=== PATIENT | male | born 1995 | race Caucasian/White ===

== ENCOUNTER 2024-09-13 15:21 | Inpatient (IN) | payer OTHER ==
[2024-09-13] MEDS ORDERED: LORazepam 1 MG TAB PO PRN ×4 (15:24)
[2024-09-13] MEDS ORDERED: LORazepam 2 MG/ML INJ IV PRN (15:24)
[2024-09-13] MEDS ORDERED: LORazepam 0.5 MG TAB PO PRN (15:24)
--- NOTE | 2024-09-13 15:26 | ED ---
Seizure HPI - General Stated Complaint: seizure Time Seen by Provider: 09/13/24 15:24 Source: RN notes reviewed, old records reviewed Mode of arrival: EMS Limitations: altered mental status, physical limitation - History of Present Illness Initial Comments: This is a 28-year-old male to the ER for evaluation presenting mildly postictal although immediately responsive, patient states he does not want to be here in the hospital patient had likely 2 seizures prior to arrival and was given medication by EMS. Patient is going through alcohol withdrawal with history of polysubstance abuse MD Complaint: seizure -: minutes(s) Description of Episode: loss of consciousness, tonic-clonic movement -: second(s) Witnessed: yes - by bystander Trauma: Yes Seizure History: history of withdrawal seizures Place: other (Coming from [place]) Possible Precipitating Event: none Associated Symptoms: denies other symptoms Treatments Prior to Arrival: none - Related Data Allergies Allergy/AdvReac Type Severity Reaction Status Date / Time Penicillins Allergy Rash/Hives Verified 09/13/24 17:32 Review of Systems ROS Statement: Those systems with pertinent positive or pertinent negative responses have been documented in the HPI. ROS Other: All systems not noted in ROS Statement are negative. General Exam General appearance: alert, in no apparent distress Head exam: Present: atraumatic, normocephalic, normal inspection Eye exam: Present: normal appearance, PERRL, EOMI. Absent: scleral icterus, conjunctival injection, periorbital swelling ENT exam: Present: normal exam, mucous membranes moist Neck exam: Present: normal inspection. Absent: tenderness, meningismus, lymphadenopathy Respiratory exam: Present: normal lung sounds bilaterally. Absent: respiratory distress, wheezes, rales, rhonchi, stridor Cardiovascular Exam: Present: regular rate, normal rhythm, normal heart sounds. Absent: systolic murmur, diastolic murmur, rubs, gallop, clicks GI/Abdominal exam: Present: soft, normal bowel sounds. Absent: distended, tenderness, guarding, rebound, rigid Extremities exam: Present: normal inspection, full ROM, normal capillary refill. Absent: tenderness, pedal edema, joint swelling, calf tenderness Back exam: Present: normal inspection Neurological exam: Present: alert, oriented X3, CN II-XII intact Psychiatric exam: Present: normal affect, normal mood Skin exam: Present: warm, dry, intact, normal color. Absent: rash Course Vital Signs 09/13/24 09/13/24 09/13/24 15:25 15:31 16:31 Temperature 98 F Pulse Rate 94 92 90 Respiratory 20 23 20 Rate Blood Pressure 129/68 127/73 120/68 O2 Sat by Pulse 98 98 98 Oximetry - Reevaluation(s) Reevaluation #1: 09/13/24 15:26 Medical records reviewed Reevaluation #2: 09/13/24 17:33 Patient withdrawal symptoms beginning to be controlled with benzodiazepines here in the ER Reevaluation #3: 09/13/24 17:33 Patient informed of results questions answered patient spoken with at length regarding need to stay in the hospital and he is amenable Reevaluation #4: Was pt. sent in by a medical professional or institution (KANDIS Jones, EXPERIENCE DESIGNER, urgent care, hospital, or fci...) When possible be specific @ -no Did you speak to anyone other than the patient for history (EMS, parent, family, police, friend...)? What history was obtained from this source @ -no Did you review nursing and triage notes (agree or disagree)? Why? @ -agree Are old charts reviewed (outside hosp., previous admission, EMS record, old EKG, old radiological studies, urgent care reports/EKG's, fci records)? Report findings @ -yes Differential Diagnosis (chest pain, altered mental status, abdominal pain women, abdominal pain men, vaginal bleeding, weakness, fever, dyspnea, syncope, headache, dizziness, GI bleed, back pain, seizure, CVA, palpatations, mental health, musculoskeletal)? @ -prior EKG interpreted by me (3pts min.). @ -yes X-rays interpreted by me (1pt min.). @ -yes negative for acute disease CT interpreted by me (1pt min.). @ -no U/S interpreted by me (1pt. min.). @ -no What testing was considered but not performed or refused? (CT, X-rays, U/S, labs)? Why? @ -none What meds were considered but not given or refused? Why? @ -none Did you discuss the management of the patient with other professionals (professionals i.e. KANDIS Jones, EXPERIENCE DESIGNER, lab, RT, psych nurse, social human services assistants, getter operator, teacher, professional security officer, heel caser)? Give summary @ -no Was smoking cessation discussed for >3mins.? @ -no Was critical care preformed (if so, how long)? @ -no Were there social determinants of health that impacted care today? How? (Homelessness, low income, unemployed, alcoholism, drug addiction, transportation, low edu. Level, literacy, decrease access to med. care, prison, rehab)? @ -none Was there de-escalation of care discussed even if they declined (Discuss DNR or withdrawal of care, Hospice)? DNR status @ -no What co-morbidities impacted this encounter? (DM, HTN, Smoking, COPD, CAD, Ca ncer, CVA, ARF, Chemo, Hep., AIDS, mental health diagnosis, sleep apnea, morbid obesity)? @ -none Was patient admitted / discharged? Hospital course, mention meds given and route, prescriptions, significant lab abnormalities, going to OR and other pertinent info. @ - Undiagnosed new problem with uncertain prognosis? @ -no Drug Therapy requiring intensive monitoring for toxicity (Heparin, Nitro, Insulin, Cardizem)? @ -no Were any procedures done? @ -no Diagnosis/symptom? @ - Acute, or Chronic, or Acute on Chronic? @ -Acute Uncomplicated (without systemic symptoms) or Complicated (systemic symptoms)? @ -Complicated Side effects of treatment? @ -no Exacerbation, Progression, or Severe Exacerbation? @ -exacerbation Poses a threat to life or bodily function? How? (Chest pain, [place], [place], pneumonia, PE, COPD, DKA, ARF, appy, cholecystitis, CVA, Diverticulitis, Homicidal, Suicidal, threat to staff... and all critical care pts) @ -yes Reevaluation #5: Differential Seizure: Recurrent seizure disorder, febrile seizure, alcohol withdrawal, stimulants, meningitis, encephalitis, intercranial hemorrhage, intracranial tumor, stroke, eclampsia, thyrotoxicosis, hypocalcemia, hyponatremia, hypernatremia, hypomagnesemia, psychogenic, this is not meant to be an all-inclusive list. - Consultations Consultation #1: Spoke with karson who agrees to admit this patient Medical Decision Making - Medical Decision Making 28 male to ER for evaluation of alcohol withdrawal seizures, polysubstance abuse, patient stated 4 days of sick seizure today. EMS with concern for greg whitehead. Patient is awake arrival to the ER he does not want to stay in the hospital but informed he does have to stay in the hospital for significant sepsis activity and withdrawal symptoms - Lab Data Result diagrams: 09/13/24 15:24 09/13/24 15:24 Lab Results 09/13/24 09/13/24 09/13/24 Range/Units 15:24 15:24 15:24 WBC 6.1 (3.8-10.6) k/uL RBC 4.49 (4.30-5.90) m/uL Hgb 13.6 (13.0-17.5) gm/dL Hct 40.6 (39.0-53.0) % MCV 90.4 (80.0-100.0) fL MCH 30.4 (25.0-35.0) pg MCHC 33.6 (31.0-37.0) g/dL RDW 12.6 (11.5-15.5) % Plt Count 266 (150-450) k/uL MPV 6.7 Neutrophils % 66 % Lymphocytes % 23 % Monocytes % 7 % Eosinophils % 1 % Basophils % 0 % Neutrophils # 4.0 (1.3-7.7) k/uL Lymphocytes # 1.4 (1.0-4.8) k/uL Monocytes # 0.4 (0-1.0) k/uL Eosinophils # 0.1 (0-0.7) k/uL Basophils # 0.0 (0-0.2) k/uL PT 10.8 (10.0-12.5) sec INR 1.0 (<1.2) Sodium (137-145) mmol/L Potassium (3.5-5.1) mmol/L Chloride (98-107) mmol/L Carbon Dioxide (22-30) mmol/L Anion Gap mmol/L BUN (9-20) mg/dL Creatinine (0.66-1.25) mg/dL Est GFR (CKD-EPI)AfAm (>60 ml/min/1.73 sqM) Est GFR (CKD-EPI)NonAf (>60 ml/min/1.73 sqM) Glucose (74-99) mg/dL Calcium (8.4-10.2) mg/dL Phosphorus (2.5-4.5) mg/dL Magnesium (1.6-2.3) mg/dL Total Bilirubin (0.2-1.3) mg/dL AST (17-59) U/L ALT (4-49) U/L Alkaline Phosphatase (38-126) U/L Total Protein (6.3-8.2) g/dL Albumin (3.5-5.0) g/dL Lipase (23-300) U/L Urine Color Colorless Urine Appearance Clear (Clear) Urine pH 7.0 (5.0-8.0) Ur Specific [place] 1.011 (1.001-1.035) Urine Protein Negative (Negative) Urine Glucose (UA) Negative (Negative) Urine Ketones Trace H (Negative) Urine Blood Negative (Negative) Urine Nitrite Negative (Negative) Urine Bilirubin Negative (Negative) Urine Urobilinogen <2.0 (<2.0) mg/dL Ur Leukocyte Esterase Negative (Negative) Salicylates mg/dL Urine Opiates Screen Not Detected (NotDetected) Ur Oxycodone Screen Not Detected (NotDetected) Urine Methadone Screen Not Detected (NotDetected) Acetaminophen ug/mL Ur Barbiturates Screen Not Detected (NotDetected) Phenytoin ug/mL Valproic Acid ug/mL U Tricyclic Antidepress Not Detected (NotDetected) Ur Phencyclidine Scrn Not Detected (NotDetected) Ur Amphetamines Screen Not Detected (NotDetected) U Methamphetamines Scrn Not Detected (NotDetected) U Benzodiazepines Scrn Detected H (NotDetected) [place] mmol/L Urine Cocaine Screen Detected H (NotDetected) U Marijuana (THC) Screen Detected H (NotDetected) Serum Alcohol mg/dL 09/13/24 Range/Units 15:24 WBC (3.8-10.6) k/uL RBC (4.30-5.90) m/uL Hgb (13.0-17.5) gm/dL Hct (39.0-53.0) % MCV (80.0-100.0) fL MCH (25.0-35.0) pg MCHC (31.0-37.0) g/dL RDW (11.5-15.5) % Plt Count (150-450) k/uL MPV Neutrophils % % Lymphocytes % % Monocytes % % Eosinophils % % Basophils % % Neutrophils # (1.3-7.7) k/uL Lymphocytes # (1.0-4.8) k/uL Monocytes # (0-1.0) k/uL Eosinophils # (0-0.7) k/uL Basophils # (0-0.2) k/uL PT (10.0-12.5) sec INR (<1.2) Sodium 134 L (137-145) mmol/L Potassium 4.0 (3.5-5.1) mmol/L Chloride 105 (98-107) mmol/L Carbon Dioxide 21 L (22-30) mmol/L Anion Gap 8 mmol/L BUN 8 L (9-20) mg/dL Creatinine 1.16 (0.66-1.25) mg/dL Est GFR (CKD-EPI)AfAm >90 (>60 ml/min/1.73 sqM) Est GFR (CKD-EPI)NonAf 87 (>60 ml/min/1.73 sqM) Glucose 90 (74-99) mg/dL Calcium 8.9 (8.4-10.2) mg/dL Phosphorus 2.5 (2.5-4.5) mg/dL Magnesium 2.3 (1.6-2.3) mg/dL Total Bilirubin 0.8 (0.2-1.3) mg/dL AST 39 (17-59) U/L ALT 30 (4-49) U/L Alkaline Phosphatase 55 (38-126) U/L Total Protein 6.3 (6.3-8.2) g/dL Albumin 3.9 (3.5-5.0) g/dL Lipase 77 (23-300) U/L Urine Color Urine Appearance (Clear) Urine pH (5.0-8.0) Ur Specific [place] (1.001-1.035) Urine Protein (Negative) Urine Glucose (UA) (Negative) Urine Ketones (Negative) Urine Blood (Negative) Urine Nitrite (Negative) Urine Bilirubin (Negative) Urine Urobilinogen (<2.0) mg/dL Ur Leukocyte Esterase (Negative) Salicylates <1.0 mg/dL Urine Opiates Screen (NotDetected) Ur Oxycodone Screen (NotDetected) Urine Methadone Screen (NotDetected) Acetaminophen <10.0 ug/mL Ur Barbiturates Screen (NotDetected) Phenytoin <3.0 ug/mL Valproic Acid <10.0 ug/mL U Tricyclic Antidepress (NotDetected) Ur Phencyclidine Scrn (NotDetected) Ur Amphetamines Screen (NotDetected) U Methamphetamines Scrn (NotDetected) U Benzodiazepines Scrn (NotDetected) [place] <0.2 mmol/L Urine Cocaine Screen (NotDetected) U Marijuana (THC) Screen (NotDetected) Serum Alcohol <10 mg/dL - EKG Data -: EKG Interpreted by Me (EKG is a flutter sinus tachycardia 102 QRS 87 QTc 416) - Radiology Data Radiology results: report reviewed (CT brain is negative for acute disease), image reviewed Critical Care Time Critical Care Time: Yes Total Critical Care Time: 31 Disposition Clinical Impression: Generalized seizure, Alcohol withdrawal, Alcohol withdrawal seizure, Polysubstance abuse Disposition: ADMITTED IP TO THIS [facility] Condition: Serious Instructions (If sedation given, give patient instructions): Seizure/Epilepsy Discharge Instructions & Follow-Up Is patient prescribed a controlled substance at d/c from ED?: No Referrals: [facility] [NON-STAFF] - 1-2 days [facility] [NON-STAFF] - 1-2 days None,Stated [Primary Care Provider] - 1-2 days Forms: PH Area PCPs Time of Disposition: 17:30
[2024-09-13] MEDS: LORazepam 2 MG/ML INJ IV STA ×2 (15:44→18:03)
[2024-09-13] MEDS: levETIRAcetam IV 500 MG/5 ML VIAL IVP STA (15:46)
[2024-09-13] MEDS: SODIUM CHLORIDE 0.9% 1,000 ML IV STA ×2 (15:46)
[2024-09-13 16:04] LABS: Prothrombin Time 10.8 sec (10.0-12.5)
[2024-09-13 16:06] LABS: AST 39 U/L (17-59); Acetaminophen <10.0 ug/mL; African American GFR (CKD) >90 (>60 ml/min/1.73 sqM); Albumin 3.9 g/dL (3.5-5.0); Alcohol <10 mg/dL; Alkaline Phosphatase 55 U/L (38-126); Anion Gap 8 mmol/L; Blood Urea Nitrogen 8 mg/dL (9-20); Calcium 8.9 mg/dL (8.4-10.2); Carbon Dioxide 21 mmol/L (22-30); Chloride 105 mmol/L (98-107); Glucose 90 mg/dL (74-99); Lipase 77 U/L (23-300); Lithium <0.2 mmol/L; Magnesium 2.3 mg/dL (1.6-2.3); Non-African American GFR(CKD) 87 (>60 ml/min/1.73 sqM); Phenytoin (Dilantin) <3.0 ug/mL; Phosphorus 2.5 mg/dL (2.5-4.5); Salicylate <1.0 mg/dL; Sodium 134 mmol/L (137-145); Total Bilirubin 0.8 mg/dL (0.2-1.3); Total Protein 6.3 g/dL (6.3-8.2)
[2024-09-13 16:10] LABS: Basophils % (A) 0 %; Eosinophils # (A) 0.1 k/uL (0-0.7); Eosinophils % (A) 1 %; HCT 40.6 % (39.0-53.0); HGB 13.6 gm/dL (13.0-17.5); Lymphocytes # (A) 1.4 k/uL (1.0-4.8); Lymphocytes % (A) 23 %; MCH 30.4 pg (25.0-35.0); MCHC 33.6 g/dL (31.0-37.0); MCV 90.4 fL (80.0-100.0); Mean Platelet Volume 6.7; Monocytes # (A) 0.4 k/uL (0-1.0); Monocytes % (A) 7 %; Neutrophils % (A) 66 %; Platelet Count 266 k/uL (150-450); RBC 4.49 m/uL (4.30-5.90); RDW 12.6 % (11.5-15.5); Valproic Acid (Depakene) <10.0 ug/mL; WBC 6.1 k/uL (3.8-10.6)
[2024-09-13 16:11] LABS: ALT 30 U/L (4-49)
[2024-09-13] MEDS: LORazepam 2 MG/ML INJ IV PRN ×2 (16:41→19:02)
[2024-09-13 17:02] LABS: Appearance,Urine Clear (Clear); Bilirubin,Urine Negative (Negative); Blood,Urine Negative (Negative); Color,Urine Colorless; Glucose,Urine (UA) Negative (Negative); Ketones,Urine Trace (Negative); Leukocyte Esterase,Urine Negative (Negative); Nitrite,Urine Negative (Negative); Protein,Urine Negative (Negative); Specific Gravity,Urine 1.011 (1.001-1.035); Urobilinogen,Urine <2.0 mg/dL (<2.0)
[2024-09-13 17:16] LABS: Amphetamine Screen,Urine Not Detected (NotDetected); Barbiturate Screen,Urine Not Detected (NotDetected); Benzodiazepines Screen,Urine Detected (NotDetected); Cocaine Screen,Urine Detected (NotDetected); Methadone Screen, Urine Not Detected (NotDetected); Opiate Screen,Urine Not Detected (NotDetected); Oxycodone Screen, Urine Not Detected (NotDetected); Phencyclidine Screen,Urine Not Detected (NotDetected); Tricyclic Antidepressant,Urine Not Detected (NotDetected); Urn Cannabinoid Scrn Detected (NotDetected)
--- NOTE | 2024-09-13 17:17 | CT ---
EXAMINATION TYPE: CT brain wo con DATE OF EXAM: 09/13/2024 5:09 PM COMPARISON: None. CLINICAL INDICATION: Male, 28 years old with history of seizure activity, SEIZURE TECHNIQUE: Brain: Axial CT images of the brain were obtained with coronal and sagittal reformats created and rev iewed. Contrast used: None. Oral contrast used: None. CT DLP: 1157 mGycm, Automated exposure control for dose reduction was used. FINDINGS: Brain: Extra-axial spaces: No abnormal extra-axial fluid collections. Ventricular system: Within normal limits Cerebral parenchyma: No acute intraparenchymal hemorrhage or mass effect. The grijalva-white junction is well differentiated. Cerebellum: Unremarkable. Mass effect: No evidence of midline shift. Intracranial vasculature: unremarkable Soft tissues: Normal. Calvarium/osseous structures: No depressed skull fracture. Paranasal sinuses and mastoid air cells: Mild scattered paranasal sinus disease. Visualized orbits: Orbital contents are intact. IMPRESSION: No acute intracranial process. [facility], , 09/13/2024 5:14 PM
[2024-09-13] MEDS ORDERED: ONDANSETRON 4 MG/2 ML VIAL IVP PRN (17:29)
[2024-09-13] MEDS ORDERED: NALOXONE 0.4 MG/ML 1 ML VIAL IV PRN (17:29)
[2024-09-13] MEDS: SODIUM CHLORIDE 0.9% 1,000 ML IV SCH (17:46)
[2024-09-13 19:36] LABS: Carbamazepine (Tegretol) <2.0 UG/ML (4.0-12.0)
[2024-09-13] MEDS: NICOTINE 21MG/24HR PATCH TRANSDERM STA (20:11)
--- NOTE | 2024-09-13 23:35 | P.HPIM ---
History of Present Illness H&P Date: 09/13/24 Chief Complaint: Seizure History of present illness; 28-year-old male with PMH of alcohol use disorder, anxiety, bipolar, depression presents with witnessed seizure. Of note during time of interview patient is aggravated and unwilling to answer all questions. Initially patient reports he "faked the seizures ", but later in the interview states he was just kidding and believes he may have had a seizure. Patient notes that he was standing in line to get his medications at [place] when the next thing he knew he was on the ground with people surrounding him and saying that he had a seizure. Reports his last drink was 3 days ago. Patient admits to shortness of breath and headache, but states these symptoms are occurring because he is unhappy and aggravated with the situation he is currently in. Rest of ROS difficult to obtain due to patient being uncooperative. Labs: WBC 6.1, hemoglobin 15.6, MCV 90.4, sodium 134, bicarb 21, creatinine 1.16, AST 39, ALT 30, lipase 77, and urine drug screen positive for benzodiazepine, cocaine, and marijuana. Serum alcohol less than 10. Imaging: - EKG done in the ER showed sinus rhythm at 102 bpm, no ST segment elevation or depression seen, no T-wave inversions seen with QTc 416. - ER CT Head: No acute intracranial process REVIEW OF SYSTEMS: As stated above in HPI. The rest of the 14-point review of systems is negative. PHYSICAL EXAMINATION: GENERAL: The patient is alert and oriented x3, not in any acute distress. Well developed, well nourished. HEENT: Pupils are round and equally reacting to light. EOMI. No scleral icterus. No conjunctival pallor. Normocephalic, atraumatic. CARDIOVASCULAR: S1 and S2 present. No murmurs, rubs, or gallops. PULMONARY: Chest is clear to auscultation b/l, no wheezing or crackles. ABDOMEN: Soft, nontender, nondistended, normoactive bowel sounds. No palpable organomegaly. MUSCULOSKELETAL: No joint swelling or deformity. EXTREMITIES: No cyanosis, clubbing, or pedal edema. NEUROLOGICAL: Gross neurological examination did not reveal any focal deficits. SKIN: No rashes. Assessment and Plan 28-year-old male with PMH of alcohol use disorder, anxiety, bipolar, depression presents with witnessed seizure. Patient admitted to the internal medicine service will likely stay less than 2 midnights. #Seizure-like activity: likely secondary to alcohol withdrawal vs less likely drug use versus new onset seizure disorder -Urine toxicology positive for cocaine and marijuana -Received 1000 mg Keppra IVP once in the ED, start Keppra 500 mg p.o. twice daily -Neurology consulted -Consider brain MRI and EEG -seizure and fall precautions #Alcohol dependence - Alcohol less than 10 - Alkaline phosphatase 55. Albumin 3.9 - Ativan PO per [facility] protocol - Give daily thiamine and folic acid and multivitamin - seizure and fall precautions - monitor daily electrolytes - cardiac monitoring - executive secretary social welfare consult - Repeat EKG Chronic Conditions: #Mood disorder -Continue home medications. F: NS 75 cc/h E: Replenish as needed N: Regular diet A: Normally ambulates unassisted at home DVT ppx: Lovenox 40 SQ daily GI ppx: Protonix 40 mg p.o. daily CODE STATUS: Full code Dispo: Pending clinical course Ashleigh Medina MD PGY-1 FM Dictation was produced using [employer] dictation software. please excuse any grammatical, word or spelling errors. Past Medical History Additional Past Medical History / Comment(s): etoh abuse Past Surgical History: No Surgical Hx Reported Past Psychological History: Anxiety, Bipolar, Depression, PTSD, Schizophrenia Smoking Status: Current every day smoker Past Alcohol Use History: Abuse Past Drug Use History: Cocaine Medications and Allergies Home Medications Medication Instructions Recorded Confirmed Type ARIPiprazole [Abilify] 10 mg PO HS 09/13/24 09/13/24 History Acetaminophen [Tylenol] 650 mg PO Q4H PRN MDD 2,600mg 09/13/24 09/13/24 History Calcium Phos/D3/Magnesium/Zinc 1 tab PO TID PRN 09/13/24 09/13/24 History [Bggvzya-Rnk-Irhn-Vitamin D3] Chlorpheniramine Maleate 4 mg PO Q4H PRN 09/13/24 09/13/24 History [Chlor-Trimeton] Gabapentin 300 mg PO TID 09/13/24 09/13/24 History Hyoscyamine Sulfate [Levsin] 0.125 mg PO QID PRN 09/13/24 09/13/24 History Ibuprofen [Motrin Ib] 600 mg PO Q6H PRN 09/13/24 09/13/24 History LORazepam [Ativan] 1 - 2 mg PO Q4H 09/13/24 09/13/24 History Loperamide HCl [Imodium A-D] 4 mg PO QID PRN MDD 16 mg 09/13/24 09/13/24 History Multivitamins, Thera [Multivitamin 1 tab PO DAILY 09/13/24 09/13/24 History (formulary)] Mylanta Regular Strength 30 ml PO Q4H PRN 09/13/24 09/13/24 History Thiamine [Vitamin B-1] 100 mg PO DAILY 09/13/24 09/13/24 History guaiFENesin [guaiFENesin Oral 200 mg PO Q4H PRN 09/13/24 09/13/24 History Solution] ondansetron HCL [Zofran] 8 mg PO Q6H PRN 09/13/24 09/13/24 History Allergies Allergy/AdvReac Type Severity Reaction Status Date / Time Penicillins Allergy Rash/Hives Verified 09/13/24 17:32 Physical Exam Vitals: Vital Signs Temp Pulse Resp BP Pulse Ox 09/13/24 18:00 85 20 134/86 98 09/13/24 17:00 85 20 134/86 98 09/13/24 16:31 90 20 120/68 98 09/13/24 15:31 92 23 127/73 98 09/13/24 15:25 98 F 94 20 129/68 98 Intake and Output 09/13/24 09/13/24 09/13/24 06:59 14:59 22:59 Other: Weight 68.039 kg Results CBC & Chem 7: 09/13/24 15:24 09/13/24 15:24 Labs: Abnormal Lab Results - Last 24 Hours (Table) 09/13/24 09/13/24 Range/Units 15:24 15:24 Sodium 134 L (137-145) mmol/L Carbon Dioxide 21 L (22-30) mmol/L BUN 8 L (9-20) mg/dL Urine Ketones Trace H (Negative) Carbamazepine <2.0 L (4.0-12.0) UG/ML U Benzodiazepines Scrn Detected H (NotDetected) Urine Cocaine Screen Detected H (NotDetected) U Marijuana (THC) Screen Detected H (NotDetected)
[2024-09-14] MEDS: ARIPiprazole 10 MG TAB PO SCH (01:56)
[2024-09-14] MEDS ORDERED: LOPERAMIDE 2 MG CAP PO PRN (02:56)
[2024-09-14 06:30] VITALS: RESP 18
[2024-09-14] MEDS ORDERED: diphenhydrAMINE 25 MG CAP PO PRN (08:00)
[2024-09-14 08:50] VITALS: BP 109/68; PULSE 80; TEMP 98.4
[2024-09-14] MEDS: FOLIC ACID 1 MG TAB PO SCH (08:51)
[2024-09-14] MEDS: THIAMINE 100 MG TAB PO SCH (08:51)
[2024-09-14] MEDS: levETIRAcetam 500 MG TAB PO SCH (08:52)
[2024-09-14] MEDS: MULTIVITAMINS, THERA 1 EACH TAB PO SCH (08:52)
[2024-09-14] MEDS: PANTOPRAZOLE 40 MG TABLET PO SCH (08:52)
[2024-09-14] MEDS: ENOXAPARIN 40 MG/0.4 ML SYRINGE SQ SCH (08:55)
[2024-09-14] MEDS ORDERED: CALCIUM CARB-VIT D 500 MG-5 MCG TAB PO PRN (09:00)
[2024-09-14] MEDS ORDERED: MAG HYDROX/AL HYDROX/SIMETH 30 ML CUP PO PRN (09:00)
[2024-09-14] MEDS ORDERED: GABAPENTIN 300 MG CAP PO SCH (09:00)
[2024-09-14] MEDS ORDERED: guaiFENesin SYRUP 100MG/5ML 200 MG/10 ML CUP PO PRN (09:00)
[2024-09-14] MEDS ORDERED: HYOSCYAMINE SULFATE 0.125 MG TAB PO PRN (09:00)
[2024-09-14 10:30] LABS: Basophils # (A) 0.03 X 10*3/uL (0.00-0.10); Basophils % (A) 0.6 %; Eosinophils # (A) 0.16 X 10*3/uL (0.04-0.35); HGB 14.9 g/dL (13.0-17.0); Lymphocytes # (A) 1.78 X 10*3/uL (0.90-5.00); Lymphocytes % (A) 33.8 %; MCH 30.2 pg (27.0-32.0); MCHC 33.9 g/dL (32.0-37.0); MCV 89.1 FL (80.0-97.0); Mean Platelet Volume 8.7 FL (9.5-12.2); Monocytes # (A) 0.54 X 10*3/uL (0.20-1.00); Monocytes % (A) 10.3 %; NRBC Per 100 WBC 0 X 10*3/uL (0.00-0.01); Neutrophils # (A) 2.74 X 10*3/uL (1.80-7.70); Neutrophils % (A) 52.1 %; Platelet Count 256 X 10*3/uL (140-440); RBC 4.94 X 10*6/uL (4.40-5.60); RDW 12.6 % (11.5-14.5); WBC 5.26 X 10*3/uL (4.50-10.00)
[2024-09-14 10:43] LABS: ALT 23 U/L (10-49); AST 29 U/L (14-35); Albumin 4.2 g/dL (3.8-4.9); Alkaline Phosphatase 56 U/L (41-126); BUN/Creat Ratio 4.82 Ratio (12.00-20.00); Blood Urea Nitrogen 5.3 mg/dL (9.0-27.0); Calcium 9.1 mg/dL (8.7-10.3); Carbon Dioxide 23.7 mmol/L (21.6-31.8); Chloride 102 mmol/L (96-109); Globulin 2.1 g/dL (1.6-3.3); Glucose 82 mg/dL (70-110); Magnesium 2.3 mg/dL (1.5-2.4); Phosphorus 4.1 mg/dL (2.4-5.1); Potassium 4.2 mmol/L (3.5-5.5); Sodium 136 mmol/L (135-145); Total Bilirubin 0.8 mg/dL (0.3-1.2); Total Protein 6.3 g/dL (6.2-8.2)
--- NOTE | 2024-09-14 14:01 | P.DS ---
Providers Date of admission: 09/13/24 17:29 Expected date of discharge: 09/14/24 Attending physician: Daron Fernandes MD Consults: 09/13/24 17:29 Consult Physician Routine Consulting Provider: Matheus Willis Consult Reason/Comments: sz Do you want consulting provider notified?: Yes Primary care physician: Stated None Hospital Course: 28-year-old male with PMH of alcohol use disorder, anxiety, bipolar, depression presents with witnessed seizure. Of note during time of interview patient is aggravated and unwilling to answer all questions. Initially patient reports he "faked the seizures ", but later in the interview states he was just kidding and believes he may have had a seizure. Patient notes that he was standing in line to get his medications at [place] when the next thing he knew he was on the ground with people surrounding him and saying that he had a seizure. Reports his last drink was 3 days ago. WBC 6.1, hemoglobin 15.6, MCV 90.4, sodium 134, bicarb 21, creatinine 1.16, AST 39, ALT 30, lipase 77, and urine drug screen positive for benzodiazepine, cocaine, and marijuana. Serum alcohol less than 10. EKG done in the ER showed sinus rhythm at 102 bpm, no ST segment elevation or depression seen, no T-wave inversions seen with QTc 416. CT Head: No acute intracranial process. Patient loaded on Keppra and admitted for further workup and management. 09/14 Patient was seen and examined. Feeling well. Reports EtOH induced seizures in the past. Denies suicidal or homicidal ideation. No AH or VH. Wants to go back to [place] [facility] today or signing out AMA. Advised to abstain from EtOH or illicit drugs. Advised no driving for 6 months until seizure free and cleared by Neurology. General: non toxic, no distress, appears at stated age Derm: warm, dry Head: atraumatic, normocephalic, symmetric Eyes: EOMI, no lid lag, anicteric sclera Mouth: no lip lesion, mucus membranes moist Cardiovascular: S1S2 tachy, no murmur Lungs: CTA bilateral, no rhonchi, no rales , no accessory muscle use Ext: no gross muscle atrophy, no edema, no contractures Neuro: No focal neuroligic deficits Psych: Alert and oriented Discharge Diagnosis: Seizure-like activity Alcohol dependence Bipolar disorder This complex discharge took 35 minutes to complete. Patient Condition at Discharge: Serious Plan - Discharge Summary New Discharge Prescriptions: Continue ondansetron HCL [Zofran] 8 mg PO Q6H PRN PRN Reason: Nausea Thiamine [Vitamin B-1] 100 mg PO DAILY Ibuprofen [Motrin Ib] 600 mg PO Q6H PRN PRN Reason: Pain Or Fever > 100.5 Loperamide HCl [Imodium A-D] 4 mg PO QID PRN MDD 16 mg PRN Reason: Loose Stool LORazepam [Ativan] 1 - 2 mg PO Q4H guaiFENesin [guaiFENesin Oral Solution] 200 mg PO Q4H PRN PRN Reason: cough/congestion Chlorpheniramine Maleate [Chlor-Trimeton] 4 mg PO Q4H PRN PRN Reason: allergies/withdrawl symptoms ARIPiprazole [Abilify] 10 mg PO HS Acetaminophen [Tylenol] 650 mg PO Q4H PRN MDD 2,600mg PRN Reason: Pain Or Fever > 100.5 Mylanta Regular Strength 30 ml PO Q4H PRN PRN Reason: Gi Upset Multivitamins, Thera [Multivitamin (formulary)] 1 tab PO DAILY Hyoscyamine Sulfate [Levsin] 0.125 mg PO QID PRN PRN Reason: cramps/withdrawl symptoms Calcium Phos/D3/Magnesium/Zinc [Pnkwkhp-Lqt-Gicg-Vitamin D3] 1 tab PO TID PRN PRN Reason: cramps/withdrawl symptoms Gabapentin 300 mg PO TID Discharge Medication List ARIPiprazole [Abilify] 10 mg PO HS 09/13/24 [History] Acetaminophen [Tylenol] 650 mg PO Q4H PRN MDD 2,600mg 09/13/24 [History] Calcium Phos/D3/Magnesium/Zinc [Bqlqcyl-Gcw-Btqq-Vitamin D3] 1 tab PO TID PRN 09/13/24 [History] Chlorpheniramine Maleate [Chlor-Trimeton] 4 mg PO Q4H PRN 09/13/24 [History] Gabapentin 300 mg PO TID 09/13/24 [History] Hyoscyamine Sulfate [Levsin] 0.125 mg PO QID PRN 09/13/24 [History] Ibuprofen [Motrin Ib] 600 mg PO Q6H PRN 09/13/24 [History] LORazepam [Ativan] 1 - 2 mg PO Q4H 09/13/24 [History] Loperamide HCl [Imodium A-D] 4 mg PO QID PRN MDD 16 mg 09/13/24 [History] Multivitamins, Thera [Multivitamin (formulary)] 1 tab PO DAILY 09/13/24 [History] Mylanta Regular Strength 30 ml PO Q4H PRN 09/13/24 [History] Thiamine [Vitamin B-1] 100 mg PO DAILY 09/13/24 [History] guaiFENesin [guaiFENesin Oral Solution] 200 mg PO Q4H PRN 09/13/24 [History] ondansetron HCL [Zofran] 8 mg PO Q6H PRN 09/13/24 [History] Follow up Appointment(s)/Referral(s): [facility] [NON-STAFF] - 1-2 days [facility] [NON-STAFF] - 1-2 days None,Stated [Primary Care Provider] - 1-2 days Patient Instructions/Handouts: Seizure/Epilepsy Discharge Instructions & Follow-Up Discharge/Stand Alone Forms: Area PCPs Discharge Disposition: OTHER INSTITUTION NOT DEFINED
== END 2024-09-14 14:31 | disposition home or self-care (01) | DRG 101 ==
LOC: EC 15:21 → 5NMEDONC 17:29
PROVIDERS: ADMIT Internal Medicine; ATTEND Internal Medicine
PROC: HZ2ZZZZ Detoxification Services for Substance Abuse Treatment (ICD-10-PCS; principal; 2024-09-13)
DX: R56.9 Unspecified convulsions (principal); F10.239 Alcohol dependence with withdrawal, unspecified; F17.210 Nicotine dependence, cigarettes, uncomplicated; F20.9 Schizophrenia, unspecified; F31.9 Bipolar disorder, unspecified; F41.9 Anxiety disorder, unspecified; F43.10 Post-traumatic stress disorder, unspecified; Z79.899 Other long term (current) drug therapy; Z88.0 Allergy status to penicillin
CPT/HCPCS: 36415; 70450; 80053; 80143; 80156; 80164; 80178; 80179; 80185; 80306; 80320; 81003; 83690; 83735; 84100; 85025; 85610; 96361; 96374; 96375; 96376; 99291

== ENCOUNTER 2024-09-14 23:20 | Observation (INO) | payer OTHER ==
[2024-09-14 23:40] LABS: Basophils % (A) 0 %; Eosinophils # (A) 0.1 k/uL (0-0.7); Eosinophils % (A) 1 %; HCT 41.9 % (39.0-53.0); HGB 14.4 gm/dL (13.0-17.5); Lymphocytes # (A) 1.5 k/uL (1.0-4.8); Lymphocytes % (A) 22 %; MCH 30.3 pg (25.0-35.0); MCHC 34.4 g/dL (31.0-37.0); MCV 88.3 fL (80.0-100.0); Monocytes # (A) 0.4 k/uL (0-1.0); Monocytes % (A) 6 %; Neutrophils # (A) 4.8 k/uL (1.3-7.7); Neutrophils % (A) 69 %; Platelet Count 247 k/uL (150-450); RBC 4.74 m/uL (4.30-5.90); RDW 12.7 % (11.5-15.5)
[2024-09-14] MEDS: levETIRAcetam IV 500 MG/5 ML VIAL IVP STA (23:50)
[2024-09-14 23:57] LABS: ALT 23 U/L (4-49); AST 26 U/L (17-59); African American GFR (CKD) >90 (>60 ml/min/1.73 sqM); Albumin 4.5 g/dL (3.5-5.0); Alcohol <10 mg/dL; Alkaline Phosphatase 64 U/L (38-126); Anion Gap 11 mmol/L; Blood Urea Nitrogen 8 mg/dL (9-20); Calcium 9.4 mg/dL (8.4-10.2); Carbon Dioxide 20 mmol/L (22-30); Chloride 101 mmol/L (98-107); Glucose 89 mg/dL (74-99); Non-African American GFR(CKD) 88 (>60 ml/min/1.73 sqM); Potassium 3.5 mmol/L (3.5-5.1); Sodium 132 mmol/L (137-145); Total Bilirubin 0.8 mg/dL (0.2-1.3); Total Protein 6.9 g/dL (6.3-8.2)
[2024-09-15] MEDS: SODIUM CHLORIDE 0.9% 1,000 ML IV STA ×2 (00:01→00:02)
[2024-09-15] MEDS: Acetaminophen-Codeine 300-30mg TAB PO STA (00:23)
--- NOTE | 2024-09-15 01:06 | XR ---
EXAMINATION TYPE: XR hand complete RT DATE OF EXAM: 09/15/2024 CLINICAL HISTORY: Pain TECHNIQUE: Frontal, lateral and oblique images of the right hand are obtained. COMPARISON: None. FINDINGS: There is no acute fracture/dislocation evident in the right hand. The joint spaces in the right hand appear within normal limits. Old fracture midshaft of the fifth metacarpal is noted. The overlying soft tissue appears unremarkable. IMPRESSION: There is no acute fracture or dislocation in the right hand. [facility], , 09/15/2024 1:04 AM
--- NOTE | 2024-09-15 01:07 | XR ---
EXAMINATION TYPE: XR chest 1V portable DATE OF EXAM: 09/15/2024 COMPARISON: NONE HISTORY: Seizure TECHNIQUE: Single frontal view of the chest is obtained. FINDINGS: There is no focal air space opacity, pleural effusion, or pneumothorax seen. The cardiac silhouette size is within normal limits. Overlying EKG leads are present. The osseous structures are intact. IMPRESSION: No acute cardiopulmonary process. [facility], , 09/15/2024 1:05 AM
--- NOTE | 2024-09-15 01:16 | CT ---
EXAMINATION TYPE: CT brain wo con DATE OF EXAM: 09/15/2024 COMPARISON: CT 2 days earlier. HISTORY: Seizure Automated Exposure Control for Dose Reduction was Utilized. TECHNIQUE: CT scan of the head is performed without contrast. FINDINGS: There is no acute intracranial hemorrhage, mass effect, or midline shift identified. The ventricles and sulci are within normal limits in size. Vasques-white differentiation is maintained. The globes are intact and the visualized sinuses are clear. IMPRESSION: No acute intracranial hemorrhage or midline shift is seen. No significant change from recent prior CT. [facility], , 09/15/2024 1:13 AM
[2024-09-15] MEDS ORDERED: NALOXONE 0.4 MG/ML 1 ML VIAL IV PRN (01:30)
[2024-09-15] MEDS: LORazepam 2 MG/ML INJ IV STA (01:33)
[2024-09-15] MEDS: HALOPERIDOL LACTATE 5 MG/ML 1 ML VIAL IVP STA (01:33)
--- NOTE | 2024-09-15 01:33 | ED ---
General Adult HPI - General Chief complaint: Seizure Stated complaint: seizure Time Seen by Provider: 09/14/24 23:20 Source: patient, EMS, RN notes reviewed, old records reviewed Mode of arrival: EMS - History of Present Illness Initial comments: Patient is a 28-year-old male who presents emergency department from [place] for seizure. Apparently patient had absence seizure's at [place] as well as a tonic-clonic seizure. Is there for alcohol and drug abuse. States he has a history of alcohol withdrawal seizures and also tells me that he may need to be on Keppra for other seizures as well. Was discharged from [facility] earlier today. Went back to [place] but had seizures once again. Patient was postictal for EMS. He received IM Ativan at [place]. Currently is ANO x 2-3 for myself. Denies any acute complaints. Presents for further ev aluation.Patient does relate to me that he has been having thoughts of wanting to kill himself. States that his and child 1 or 2 months ago. Has been having these thoughts since. No previous attempts. No plans. - Related Data Home Medications Medication Instructions Recorded Confirmed ARIPiprazole [Abilify] 10 mg PO HS 09/13/24 09/13/24 Acetaminophen [Tylenol] 650 mg PO Q4H PRN MDD 2,600mg 09/13/24 09/13/24 Calcium Phos/D3/Magnesium/Zinc 1 tab PO TID PRN 09/13/24 09/13/24 [Kbkqiso-Czu-Epbe-Vitamin D3] Chlorpheniramine Maleate 4 mg PO Q4H PRN 09/13/24 09/13/24 [Chlor-Trimeton] Gabapentin 300 mg PO TID 09/13/24 09/13/24 Hyoscyamine Sulfate [Levsin] 0.125 mg PO QID PRN 09/13/24 09/13/24 Ibuprofen [Motrin Ib] 600 mg PO Q6H PRN 09/13/24 09/13/24 LORazepam [Ativan] 1 - 2 mg PO Q4H 09/13/24 09/13/24 Loperamide HCl [Imodium A-D] 4 mg PO QID PRN MDD 16 mg 09/13/24 09/13/24 Multivitamins, Thera [Multivitamin 1 tab PO DAILY 09/13/24 09/13/24 (formulary)] Mylanta Regular Strength 30 ml PO Q4H PRN 09/13/24 09/13/24 Thiamine [Vitamin B-1] 100 mg PO DAILY 09/13/24 09/13/24 guaiFENesin [guaiFENesin Oral 200 mg PO Q4H PRN 09/13/24 09/13/24 Solution] ondansetron HCL [Zofran] 8 mg PO Q6H PRN 09/13/24 09/13/24 Allergies Allergy/AdvReac Type Severity Reaction Status Date / Time Penicillins Allergy Rash/Hives Verified 09/13/24 17:32 Review of Systems ROS Statement: Those systems with pertinent positive or pertinent negative responses have been documented in the HPI. Review of Systems: CONST: Denies fever EYES: Denies blurry vision ENT: Denies nasal congestion C/V: Denies Chest pain RESP: Denies shortness of breath GI: Denies abdominal pain : Denies dysuria SKIN: Denies rash. MSK: Denies joint pain. NEURO: Denies headache ROS Other: All systems not noted in ROS Statement are negative. Past Medical History Additional Past Medical History / Comment(s): etoh abuse Past Surgical History: No Surgical Hx Reported Past Psychological History: Anxiety, Bipolar, Depression, PTSD, Schizophrenia Smoking Status: Current every day smoker Past Alcohol Use History: Abuse Past Drug Use History: Cocaine General Exam - General Exam Comments Initial Comments: General: Appears in no acute distress. Appears postictal. No evidence of alcohol withdrawals at this time. HEAD: Normal with no signs of head trauma. EYES: PERRLA, EOMI, conjunctiva normal, no discharge. Pupils are 3 mm and equal bilaterally. ENT: Hearing grossly intact, normal oropharynx. RESPIRATORY: Clear breath sounds bilaterally. No wheezes, rales, or rhonchi. C/V: Regular rate and rhythm. S1 and S2 auscultated, no edema, peripheral pulses 2+ and intact throughout ABD: Abd is soft, nontender, nondistended EXT: Normal range of motion, no obvious deformity SKIN: No rashes or lesions observed on exposed skin. NEURO: Alert and oriented x 2-3. Cranial nerves II-XII intact. No focal sensory or strength deficits. Course Vital Signs 09/14/24 09/15/24 09/15/24 23:23 00:25 01:38 Temperature 98.2 F Pulse Rate 95 92 121 H Respiratory 14 16 18 Rate Blood Pressure 117/72 110/66 129/79 O2 Sat by Pulse 97 98 98 Oximetry Medical Decision Making - Medical Decision Making Was pt. sent in by a medical professional or institution (, PA, FLORIST DESIGNER, urgent care, hospital, or fpc...) When possible be specific @ -No Did you speak to anyone other than the patient for history (EMS, parent, family, police, friend...)? What history was obtained from this source @ -No Did you review nursing and triage notes (agree or disagree)? Why? @ -I reviewed and agree with nursing and triage notes Were old charts reviewed (outside hosp., previous admission, EMS record, old EKG, old radiological studies, urgent care reports/EKG's, fpc records)? Report findings @ -Chart from admission and discharge from yesterday was reviewed and showed that the patient wanted to go back to [place]. Differential Diagnosis (chest pain, altered mental status, abdominal pain women, abdominal pain men, vaginal bleeding, weakness, fever, dyspnea, syncope, headache, dizziness, GI bleed, back pain, seizure, CVA, palpatations, mental health, musculoskeletal)? @ -Differential Seizure: Recurrent seizure disorder, febrile seizure, alcohol withdrawal, stimulants, meningitis, encephalitis, intercranial hemorrhage, intracranial tumor, stroke, eclampsia, thyrotoxicosis, hypocalcemia, hyponatremia, hypernatremia, hypom agnesemia, psychogenic, this is not meant to be an all-inclusive list. Differential Mental Health Depression, anxiety, bipolar, psychosis, schizophrenia, borderline personality, situational depression, adjustment disorder, behavioral disorder, brain tumor, malingering, substance abuse, encephalopathy, medication reaction, dementia, hypothyroidism, degenerative neurologic disorder, lupus.... This is not meant to be all-inclusive list EKG interpreted by me (3pts min.). @ -As above X-rays interpreted by me (1pt min.). @ -Chest x-ray reveals no obvious acute cardiopulmonary process. Hand x-ray unremarkable. CT interpreted by me (1pt min.). @ -CT brain shows no obvious acute intracranial process. U/S interpreted by me (1pt. min.). @ -None done What testing was considered but not performed or refused? (CT, X-rays, U/S, labs)? Why? @ -None What meds were considered but not given or refused? Why? @ -None Did you discuss the management of the patient with other professionals (professionals i.e. , PA, FLORIST DESIGNER, lab, RT, psych nurse, clinical social work aide, want ad clerk, teacher, weapons officer naval activity, machine adjuster leader case trim)? Give summary @ -No Was smoking cessation discussed for >3mins.? @ -No Was critical care preformed (if so, how long)? @ -Yes, 32 minutes. Were there social determinants of health that impacted care today? How? (Homelessness, low income, unemployed, alcoholism, drug addiction, transportation, low edu. Level, literacy, decrease access to med. care, prison, rehab)? @ -No Was there de-escalation of care discussed even if they declined (Discuss DNR or withdrawal of care, Hospice)? DNR status @ -No What co-morbidities impacted this encounter? (DM, HTN, Smoking, COPD, CAD, Cancer, CVA, ARF, Chemo, Hep., AIDS, mental health diagnosis, sleep apnea, morbid obesity)? @ -Alcohol abuse Was patient admitted / discharged? Hospital course, mention meds given and route, prescriptions, significant lab abnormalities, going to OR and other pertinent info. @ -Patient presents to the emergency department complaining of breakthrough seizure. He has a history of seizures from alcohol withdrawals. Questionable if he is supposed be on Keppra. Was just discharged earlier today with similar complaints. However now patient is also complaining of suicidal ideation as well as to be evaluated by mental health. We will obtain seizure workup. CT brain and chest x-ray and hand x-ray unremarkable. Laboratory studies unremarkable. Not currently intoxicated with alcohol. No obvious evidence of a cute alcohol withdrawals. EKG shows no signs of acute ischemia. I discussed the results with the patient. Throughout his stay, he has been verbally abusive to staff. He required multiple discussions to respect others. He intermittently will become teary-eyed when talking about wanting to hurt h imself. He was amenable to receiving IV Haldol as well as Ativan which he was given. Patient will be a medicine admit at this time due to the recurrent seizures and his revisit. Neurology consulted. [facility] protocol ordered. I spoke with the admitting provider, Dr. Clinton who accepted the admission. Psychiatry consulted as well. Undiagnosed new problem with uncertain prognosis? @ -No Drug Therapy requiring intensive monitoring for toxicity (Heparin, Nitro, Insulin, Cardizem)? @ -No Were any procedures done? @ -No Diagnosis/symptom? @ -Seizure, suicidal ideation, alcohol withdrawals Acute, or Chronic, or Acute on Chronic? @ -Acute Uncomplicated (without systemic symptoms) or Complicated (systemic symptoms)? @ -Complicated Side effects of treatment? @ -No Exacerbation, Progression, or Severe Exacerbation? @ -No Poses a threat to life or bodily function? How? (Chest pain, [place], [place], pneumonia, PE, COPD, DKA, ARF, appy, cholecystitis, CVA, Diverticulitis, Homicidal, Suicidal, threat to staff... and all critical care pts) @ -Potentially, yes - Lab Data Result diagrams: 09/14/24 23:25 09/14/24 23:25 Lab Results 09/14/24 09/14/24 Range/Units 23:25 23:25 WBC 7.0 (3.8-10.6) k/uL RBC 4.74 (4.30-5.90) m/uL Hgb 14.4 (13.0-17.5) gm/dL Hct 41.9 (39.0-53.0) % MCV 88.3 (80.0-100.0) fL MCH 30.3 (25.0-35.0) pg MCHC 34.4 (31.0-37.0) g/dL RDW 12.7 (11.5-15.5) % Plt Count 247 (150-450) k/uL MPV 7.0 Neutrophils % 69 % Lymphocytes % 22 % Monocytes % 6 % Eosinophils % 1 % Basophils % 0 % Neutrophils # 4.8 (1.3-7.7) k/uL Lymphocytes # 1.5 (1.0-4.8) k/uL Monocytes # 0.4 (0-1.0) k/uL Eosinophils # 0.1 (0-0.7) k/uL Basophils # 0.0 (0-0.2) k/uL Sodium 132 L (137-145) mmol/L Potassium 3.5 (3.5-5.1) mmol/L Chloride 101 (98-107) mmol/L Carbon Dioxide 20 L (22-30) mmol/L Anion Gap 11 mmol/L BUN 8 L (9-20) mg/dL Creatinine 1.14 (0.66-1.25) mg/dL Est GFR (CKD-EPI)AfAm >90 (>60 ml/min/1.73 sqM) Est GFR (CKD-EPI)NonAf 88 (>60 ml/min/1.73 sqM) Glucose 89 (74-99) mg/dL Calcium 9.4 (8.4-10.2) mg/dL Magnesium 2.0 (1.6-2.3) mg/dL Total Bilirubin 0.8 (0.2-1.3) mg/dL AST 26 (17-59) U/L ALT 23 (4-49) U/L Alkaline Phosphatase 64 (38-126) U/L Total Protein 6.9 (6.3-8.2) g/dL Albumin 4.5 (3.5-5.0) g/dL Serum Alcohol <10 mg/dL - EKG Data -: EKG Interpreted by Me EKG Comments: 12-lead Electrocardiogram Interpretation Note EKG was reviewed and interpreted by myself. 12-lead ECG performed at 0027 is interpreted by me as revealing normal sinus rhythm at a rate of 79 beats per minute. [place] is normal. [place] interval is 165 ms, QRS durations 117 ms, QTc is 419 ms.. There were no ST or T wave abnormalities to suggest myocardial ischemia or injury. R wave progression across the precordium was satisfactory. By my interpretation this EKG is non-diagnostic for acute ischemia. Critical Care Time Critical Care Time: Yes Total Critical Care Time: 32 Disposition Clinical Impression: Recurrent seizures, Alcohol withdrawal, Suicidal ideations Disposition: ADMITTED IP TO THIS HOSP Condition: Stable Time of Disposition: 01:33
[2024-09-15] MEDS: ACETAMINOPHEN TAB 325 MG TAB PO STA (01:35)
[2024-09-15] MEDS ORDERED: LORazepam 2 MG/ML INJ IV PRN ×2 (01:35)
[2024-09-15] MEDS: SODIUM CHLORIDE 0.9% 1,000 ML IV SCH (01:36)
[2024-09-15 02:10] LABS: Appearance,Urine Clear (Clear); Bilirubin,Urine Negative (Negative); Blood,Urine Negative (Negative); Color,Urine Colorless; Glucose,Urine (UA) Negative (Negative); Ketones,Urine 2+ (Negative); Leukocyte Esterase,Urine Negative (Negative); Nitrite,Urine Negative (Negative); PH, Urine 6.5 (5.0-8.0); Protein,Urine Negative (Negative); Specific Gravity,Urine 1.012 (1.001-1.035); Urobilinogen,Urine <2.0 mg/dL (<2.0)
[2024-09-15 02:30] LABS: Phencyclidine Screen,Urine Not Detected (NotDetected)
[2024-09-15 02:31] LABS: Amphetamine Screen,Urine Not Detected (NotDetected); Barbiturate Screen,Urine Not Detected (NotDetected); Benzodiazepines Screen,Urine Detected (NotDetected); Cocaine Screen,Urine Detected (NotDetected); Methadone Screen, Urine Not Detected (NotDetected); Opiate Screen,Urine Detected (NotDetected); Oxycodone Screen, Urine Not Detected (NotDetected); Tricyclic Antidepressant,Urine Not Detected (NotDetected); Urn Cannabinoid Scrn Detected (NotDetected)
[2024-09-15] MEDS: NICOTINE 21MG/24HR PATCH TRANSDERM STA (03:22)
--- NOTE | 2024-09-15 04:33 | P.HPIM ---
History of Present Illness H&P Date: 09/15/24 Chief Complaint: Seizure History of present illness; 28-year-old male with PMH of alcohol use disorder presents with seizure. Of note patient was discharged earlier today back to [place] , after being admitted for seizure-like activity. At time of interview patient is heavily sedated with IV Ativan and Haldol and is unable to answer any questions. After discussing with ED staff they report the patient went back to [facility] today from [facility], where he had another seizure episode similar to the one that brought him in yesterday. They report his last drink was 4 days ago. ED staff reports he did endorse SI. Labs: WBC 7.0, hemoglobin 14.4, sodium 132, potassium 3.5, AST 26, ALT 23, urine positive for opiates, benzodiazepine, cocaine, and marijuana. Imaging: - EKG done in the ER showed heart rate of 98 bpm, sinus rhythm, QTc 397 REVIEW OF SYSTEMS: Unable to obtain as patient was heavily sedated and unable to answer questions during time of interview. The rest of the 14-point review of systems is negative. PHYSICAL EXAMINATION: GENERAL: Resting comfortably CHEST: Observed breathing comfortably ABDOMEN: No distension MUSCULOSKELETAL: No joint swelling or deformity. EXTREMITIES: No cyanosis, clubbing, or pedal edema. SKIN: No rash observed Assessment and Plan 28-year-old male with PMH of alcohol use disorder presents with seizure. Of note patient was discharged earlier today back to [place] , after being admitted for seizure-like activity. Patient is being worked up for potential new onset seizure disorder. # Recurrent seizures: Potentially secondary to new onset seizure disorder vs drug use versus alcohol withdrawal -Last drink was 4 days ago -Urine toxicology positive for cocaine, marijuana, opiates, and benzodiazepine -Received one-time dose Keppra 1500 mg IVP in the ED, start Keppra 500 mg p.o. twice daily -Neurology consulted, appreciate recommendations -EEG ordered, consider brain MRI -Seizure and fall precautions #Alcohol dependence -Alcohol less than 10 -Ativan IV per [facility] protocol -Give daily thiamine, folic acid, and multivitamin -Seizure precautions -Monitor daily electrolytes -Cardiac monitoring -filter worker consult Chronic Conditions: #Mood disorder (anxiety, bipolar, depression) #Suicidal ideations -Psychiatry consulted by the ED -Continue home abilify 10mg PO HS - Suicide precautions F: NS 75 cc/h E: None N: Regular diet A: Normally ambulates unassisted at home CODE STATUS: Full code Dispo: Pending clinical course Ashleigh Medina MD PGY-1 FM Dictation was produced using [employer] dictation software. please excuse any grammatical, word or spelling errors. The patient is admitted with an anticipated less than 2 midnight stay as observation status for evaluation of recurrent seizures. A total of 65 minutes was spent on the care of this complex patient more than 50% of the time was spent in counseling and care coordination. I have seen and evaluated the patient today. Discussed with the resident and agree with the residents finding and plan as documented in the resident's note. Changes highlighted in blue font. Past Medical History Additional Past Medical History / Comment(s): etoh abuse Past Surgical History: No Surgical Hx Reported Past Psychological History: Anxiety, Bipolar, Depression, PTSD, Schizophrenia Smoking Status: Current every day smoker Past Alcohol Use History: Abuse Past Drug Use History: Cocaine Medications and Allergies Home Medications Medication Instructions Recorded Confirmed Type ARIPiprazole [Abilify] 10 mg PO HS 09/13/24 09/13/24 History Acetaminophen [Tylenol] 650 mg PO Q4H PRN MDD 2,600mg 09/13/24 09/13/24 History Calcium Phos/D3/Magnesium/Zinc 1 tab PO TID PRN 09/13/24 09/13/24 History [Wigmrsb-Yjf-Pkih-Vitamin D3] Chlorpheniramine Maleate 4 mg PO Q4H PRN 09/13/24 09/13/24 History [Chlor-Trimeton] Gabapentin 300 mg PO TID 09/13/24 09/13/24 History Hyoscyamine Sulfate [Levsin] 0.125 mg PO QID PRN 09/13/24 09/13/24 History Ibuprofen [Motrin Ib] 600 mg PO Q6H PRN 09/13/24 09/13/24 History LORazepam [Ativan] 1 - 2 mg PO Q4H 09/13/24 09/13/24 History Loperamide HCl [Imodium A-D] 4 mg PO QID PRN MDD 16 mg 09/13/24 09/13/24 History Multivitamins, Thera [Multivitamin 1 tab PO DAILY 09/13/24 09/13/24 History (formulary)] Mylanta Regular Strength 30 ml PO Q4H PRN 09/13/24 09/13/24 History Thiamine [Vitamin B-1] 100 mg PO DAILY 09/13/24 09/13/24 History guaiFENesin [guaiFENesin Oral 200 mg PO Q4H PRN 09/13/24 09/13/24 History Solution] ondansetron HCL [Zofran] 8 mg PO Q6H PRN 09/13/24 09/13/24 History Allergies Allergy/AdvReac Type Severity Reaction Status Date / Time Penicillins Allergy Rash/Hives Verified 09/13/24 17:32 Physical Exam Vitals: Vital Signs Temp Pulse Resp BP Pulse Ox 09/15/24 03:04 75 14 97/54 97 09/15/24 02:00 95 18 97/47 97 09/15/24 01:38 121 H 18 129/79 98 09/15/24 00:25 92 16 110/66 98 09/14/24 23:23 98.2 F 95 14 117/72 97 Intake and Output 09/14/24 09/14/24 09/15/24 14:59 22:59 06:59 Other: Weight 72.575 kg Results CBC & Chem 7: 09/14/24 23:25 09/14/24 23:25 Labs: Abnormal Lab Results - Last 24 Hours (Table) 09/14/24 09/15/24 09/15/24 Range/Units 23:25 01:38 01:38 Sodium 132 L (137-145) mmol/L Carbon Dioxide 20 L (22-30) mmol/L BUN 8 L (9-20) mg/dL Urine Ketones 2+ H (Negative) Urine Opiates Screen Detected H (NotDetected) U Benzodiazepines Scrn Detected H (NotDetected) Urine Cocaine Screen Detected H (NotDetected) U Marijuana (THC) Screen Detected H (NotDetected)
[2024-09-15 08:58] VITALS: RESP 18
[2024-09-15] MEDS: levETIRAcetam 500 MG TAB PO SCH (11:22)
[2024-09-15] MEDS: MULTIVITAMINS, THERA 1 EACH TAB PO SCH (11:22)
[2024-09-15] MEDS: THIAMINE 100 MG TAB PO SCH (11:22)
[2024-09-15] MEDS: GABAPENTIN 300 MG CAP PO SCH (11:22)
[2024-09-15] MEDS: LORazepam 2 MG/ML INJ IV PRN (11:33)
[2024-09-15] MEDS: chlordiazePOXIDE 25 MG CAP PO SCH (12:55)
--- NOTE | 2024-09-15 14:32 | P.DS ---
Providers Date of admission: 09/15/24 01:30 Expected date of discharge: 09/15/24 Attending physician: Trip Clinton Consults: 09/15/24 01:30 Consult Physician Routine Consulting Provider: Psychiatry - [facility] Psychiatry Consult Reason/Comments: suicidal ideation Do you want consulting provider notified?: Already Contacted Consult Physician Routine Consulting Provider: Matheus Willis Consult Reason/Comments: recurrent seizures Do you want consulting provider notified?: Yes Primary care physician: Stated None Hospital Course: 28-year-old male with PMH of alcohol use disorder, anxiety, bipolar, depression presents with witnessed seizure. Recently admitted from 09/13-09/14 for witnessed seizure, workup at that time revealed WBC 6.1, hemoglobin 15.6, MCV 90.4, sodium 134, bicarb 21, creatinine 1.16, AST 39, ALT 30, lipase 77, and urine drug screen positive for benzodiazepine, cocaine, and marijuana. Serum alcohol less than 10. EKG done in the ER showed sinus rhythm at 102 bpm, no ST segment elevation or depression seen, no T-wave inversions seen with QTc 416. CT Head showed no acute intracranial process. Patient loaded on Keppra and admitted for further workup and management. He was eager to return back to [place] by was sent back for another seizure. Apparently this time he did voice some suicidal ideation to ER staff. In the ED BP 117/72, HR 95, RR 14, T98.2F, 97% on 2L NC. CBC, CMP significant for Na 132, bicarb 20, BUN 8. Mag 2. UA 2+ ketones. UDS + THC, cocaine, benzo, opiates. 09/15 Patient was seen and examined. Denies suicidal or homicidal ideation. No AH or VH. Wants to go back to [place] today or signing out AMA. Advised to abstain from EtOH or illicit drugs. Advised no driving for 6 months until seizure free and cleared by Neurology. Discussed with Dr. Willis, patient cleared for discharge on Keppra. Awaiting Psyc evaluation. General: non toxic, no distress, appears at stated age Derm: warm, dry Head: atraumatic, normocephalic, symmetric Eyes: EOMI, no lid lag, anicteric sclera Mouth: no lip lesion, mucus membranes moist Cardiovascular: S1S2 tachy, no murmur Lungs: CTA bilateral, no rhonchi, no rales , no accessory muscle use Ext: no gross muscle atrophy, no edema, no contractures Neuro: No focal neuroligic deficits Psych: Alert and oriented Discharge Diagnosis: Seizure-like activity Alcohol dependence Suicidal ideations Bipolar disorder This complex discharge took 35 minutes to complete. Patient Condition at Discharge: Stable Plan - Discharge Summary New Discharge Prescriptions: No Action ondansetron HCL [Zofran] 8 mg PO Q6H PRN PRN Reason: Nausea Thiamine [Vitamin B-1] 100 mg PO DAILY Ibuprofen [Motrin Ib] 600 mg PO Q6H PRN PRN Reason: Pain Or Fever > 100.5 Loperamide HCl [Imodium A-D] 4 mg PO QID PRN MDD 16 mg PRN Reason: Loose Stool LORazepam [Ativan] 1 - 2 mg PO Q4H guaiFENesin [guaiFENesin Oral Solution] 200 mg PO Q4H PRN PRN Reason: cough/congestion Chlorpheniramine Maleate [Chlor-Trimeton] 4 mg PO Q4H PRN PRN Reason: allergies/runny nose ARIPiprazole [Abilify] 10 mg PO HS Acetaminophen [Tylenol] 650 mg PO Q4H PRN MDD 2,600mg PRN Reason: Pain Or Fever > 100.5 Mylanta Regular Strength 30 ml PO Q4H PRN PRN Reason: Gi Upset Multivitamins, Thera [Multivitamin (formulary)] 1 tab PO DAILY Hyoscyamine Sulfate [Levsin] 0.125 mg PO QID PRN PRN Reason: cramps/withdrawl symptoms Calcium Phos/D3/Magnesium/Zinc [Hxqtnqr-Bxg-Refg-Vitamin D3] 1 tab PO TID PRN PRN Reason: cramps/withdrawl symptoms Gabapentin 300 mg PO TID traZODone HCL [Desyrel] 50 - 150 mg PO HS Discharge Medication List ARIPiprazole [Abilify] 10 mg PO HS 09/13/24 [History] Acetaminophen [Tylenol] 650 mg PO Q4H PRN MDD 2,600mg 09/13/24 [History] Calcium Phos/D3/Magnesium/Zinc [Gqeoltt-Ejq-Zgnh-Vitamin D3] 1 tab PO TID PRN 09/13/24 [History] Chlorpheniramine Maleate [Chlor-Trimeton] 4 mg PO Q4H PRN 09/13/24 [History] Gabapentin 300 mg PO TID 09/13/24 [History] Hyoscyamine Sulfate [Levsin] 0.125 mg PO QID PRN 09/13/24 [History] Ibuprofen [Motrin Ib] 600 mg PO Q6H PRN 09/13/24 [History] LORazepam [Ativan] 1 - 2 mg PO Q4H 09/13/24 [History] Loperamide HCl [Imodium A-D] 4 mg PO QID PRN MDD 16 mg 09/13/24 [History] Multivitamins, Thera [Multivitamin (formulary)] 1 tab PO DAILY 09/13/24 [History] Mylanta Regular Strength 30 ml PO Q4H PRN 09/13/24 [History] Thiamine [Vitamin B-1] 100 mg PO DAILY 09/13/24 [History] guaiFENesin [guaiFENesin Oral Solution] 200 mg PO Q4H PRN 09/13/24 [History] ondansetron HCL [Zofran] 8 mg PO Q6H PRN 09/13/24 [History] traZODone HCL [Desyrel] 50 - 150 mg PO HS 09/15/24 [History] Follow up Appointment(s)/Referral(s): None,Stated [Primary Care Provider] - 1-2 days
--- NOTE | 2024-09-15 14:50 | P.CNNES ---
History of Present Illness Consult date: 09/15/24 Requesting physician: Leonardo Yusuf Reason for Consult: recurrent seizure History of Present Illness: This is a 28-year-old gentleman with history of alcohol withdrawal seizure, polysubstance use with significant alcohol use, cocaine use and tobacco use. Patient states that he has been having seizure-like activity and he thinks his last drink was about 4 5 days ago and he drinks about 3 fifth of alcohol daily. Prior to seizure activity he feels he spaces out, whole body is weak has a buzz in his head then he becomes unresponsive and he was told that sometimes he will jerk of extremities but denies any urinary or bowel incontinence or tongue bite. He states that he did have episodes that he was sober for a year and a half but continued to have seizure-like activity. He also stated that he had seizure-lik e activity even before he started drinking and he had the seizure-like activity at the age of 18. He does acknowledge that he uses cocaine, he smokes about a pack a day. Patient was discharged from our facility yesterday because of the alcohol withdrawal from [place] but he was sent back because of again another episode of seizure. Some of the workup during this hospital visit consisted of: CBC with differential is unremarkable AST, ALT is within normal limits Calcium magnesium is within normal limits Sodium is 132 Serum glucose is 89. UDS: Positive for opiates, benzo, cocaine, marijuana. Serum alcohol is less than 10. CT of the head is reported as no acute intracranial hemorrhage or midline shift is seen. No significant change from most recent CT. I personally reviewed the CT and agree with the report. Review of Systems As per HPI. Past Medical History Additional Past Medical History / Comment(s): etoh abuse Past Surgical History: No Surgical Hx Reported Past Psychological History: Anxiety, Bipolar, Depression, PTSD, Schizophrenia Smoking Status: Current every day smoker Past Alcohol Use History: Abuse Past Drug Use History: Cocaine Medications and Allergies Home Medications Medication Instructions Recorded Confirmed Type ARIPiprazole [Abilify] 10 mg PO HS 09/13/24 09/15/24 History Acetaminophen [Tylenol] 650 mg PO Q4H PRN MDD 2,600mg 09/13/24 09/15/24 History Calcium Phos/D3/Magnesium/Zinc 1 tab PO TID PRN 09/13/24 09/15/24 History [Rhslggo-Ooi-Ievs-Vitamin D3] Chlorpheniramine Maleate 4 mg PO Q4H PRN 09/13/24 09/15/24 History [Chlor-Trimeton] Gabapentin 300 mg PO TID 09/13/24 09/15/24 History Hyoscyamine Sulfate [Levsin] 0.125 mg PO QID PRN 09/13/24 09/15/24 History Ibuprofen [Motrin Ib] 600 mg PO Q6H PRN 09/13/24 09/15/24 History LORazepam [Ativan] 1 - 2 mg PO Q4H 09/13/24 09/15/24 History Loperamide HCl [Imodium A-D] 4 mg PO QID PRN MDD 16 mg 09/13/24 09/15/24 History Multivitamins, Thera [Multivitamin 1 tab PO DAILY 09/13/24 09/15/24 History (formulary)] Mylanta Regular Strength 30 ml PO Q4H PRN 09/13/24 09/15/24 History Thiamine [Vitamin B-1] 100 mg PO DAILY 09/13/24 09/15/24 History guaiFENesin [guaiFENesin Oral 200 mg PO Q4H PRN 09/13/24 09/15/24 History Solution] ondansetron HCL [Zofran] 8 mg PO Q6H PRN 09/13/24 09/15/24 History traZODone HCL [Desyrel] 50 - 150 mg PO HS 09/15/24 09/15/24 History Allergies Allergy/AdvReac Type Severity Reaction Status Date / Time Penicillins Allergy Rash/Hives Verified 09/15/24 09:13 Physical Examination - Vital Signs Vital Signs: Vital Signs Temp Pulse Resp BP Pulse Ox 09/15/24 13:35 18 09/15/24 12:19 90 18 131/74 99 09/15/24 11:53 80 18 126/72 97 09/15/24 11:19 98.0 F 96 18 131/64 99 09/15/24 08:57 71 18 09/15/24 05:33 97.3 F L 67 15 114/69 100 09/15/24 03:04 75 14 97/54 97 09/15/24 02:00 95 18 97/47 97 09/15/24 01:38 121 H 18 129/79 98 09/15/24 00:25 92 16 110/66 98 09/14/24 23:23 98.2 F 95 14 117/72 97 Intake and Output 09/14/24 09/15/24 09/15/24 22:59 06:59 14:59 Other: Weight 72.575 kg GENERAL: The patient is lying in bed and is not in acute distress. NEUROLOGICAL: Higher mental function: The patient is awake, alert, oriented to self, place and time. Patient is following commands. No aphasia and no neglect. Cranial nerves: The pupils are round, equal and reactive to light and accommodation. Visual saravia are full to confrontation throughout. Extraocular movement is intact no nystagmus is noted. Facial sensation is normal to touch throughout. The facial strength is normal throughout. Hearing is normal bilaterally to hand rub. Tongue is midline and moved [id number] without any difficulty. No dysarthria is noted. Shoulder shrug is normal bilaterally. Motor: The strength is 5 over 5 throughout. Normal tone and bulk. Cerebellum: Normal finger to nose bilaterally. Sensation: Sensation is normal to touch throughout. Reflexes (right/left): 2+ throughout. Plantars are downgoing bilaterally. Results - Laboratory Findings CBC and BMP: 09/14/24 23:25 09/14/24 23:25 Abnormal Lab Findings: Abnormal Labs 09/14/24 09/15/24 09/15/24 23:25 01:38 01:38 Sodium 132 L Carbon Dioxide 20 L BUN 8 L Urine Ketones 2+ H Urine Opiates Screen Detected H U Benzodiazepines Scrn Detected H Urine Cocaine Screen Detected H U Marijuana (THC) Screen Detected H Assessment and Plan Assessment: This is a 28-year-old gentleman with polysubstance abuse, significant alcohol use, alcohol withdrawal seizure who presents from [place] because of seizure-like activity. He was discharged yesterday because of seizure-like activity and was felt he was stable and was sent back and then he present back with another seizure-like activity. Breakthrough seizures likely due to alcohol withdrawal seizure. History of seizure in the past most of them are due to breakthrough seizure but he stated that he had few that happened even though he was sober for a year and a half or when he did not start drinking alcohol. Unsure if you truly has epileptic seizure. Polysubstance abuse including cocaine, alcohol, marijuana, opiates Tobacco use Plan: In the ED he was given Keppra 1500 mg once then was started on 100 mg every 12 hours and this admission. Agree with Keppra 500 mg every 12 hours especially some of the episodes that he claims were not related to seizures in the past Routine EEG pending Seizure precautions seizure meds Per the [place] DMV because of the seizure, to avoid driving for 6 months until seizure-free, avoid heights, avoid swimming assisted or using heavy machinery Patient to follow-up with a neurologist as an outpatient within 2 to 3 weeks Patient was counseled on cessation of polysubstance use. Will defer the rest of the medical management to primary team and other specialist If routine EEG is negative for seizure discharges and patient is clear from a neurologic perspective. The plan discussed with the patient and primary team Thank you for the consultation Time with Patient: Greater than 30
--- NOTE | 2024-09-15 15:02 | P.CN ---
Psychiatric Consult - . Consult date: 09/15/24 Consult:: 09/15/24 14:51 IDENTIFYING DATA: This patient is a 28-year-old male with polysubstance use REASON FOR REFERRAL: Psychiatry was consulted for suicidal ideations HISTORY OF PRESENT ILLNESS: The patient presented to the hospital [place] after having a seizure. Reportedly was recently seen in the ER yesterday and was discharged to [place] however he had a seizure there and was transferred back to the ED. Patient CIWA has been ranged from 10-19. He was started on Librium given his agitation. Patient initially seen very somnolent however upon repeated attempts was able to interview. States making suicidal statements yesterday due to issues with the overnight staff. Patient appears to display several behavioral outbursts during his stay here, calling staff members names and acting out. Patient states recently losing his fiance due to overdosing and he blames her a lot as he was the one who found her . His fiance reportedly was also with their child. Patient reports losing several family members over the course of 2 years due to drug overdoses including his father. He appears motivated to return to rehab given his polysubstance use and he vehemently denies any suicidal ideations intent or plan today. He reports support system with his family and friends. At this time patient denies any homical ideations, intent or plan. Patient denies any auditory, visual hallucinations and denies any paranoia or delusions. Patients admits to using alcohol, drinking 2-3 fifths of hard liquor per day along with cannabis, opiates and cocaine. PAST PSYCHIATRIC HISTORY: Patient has a a history of substance use disorder, depression, anxiety, PTSD. Patient states recently being prescribed Abilify 10 mg at [place]. He reports 2 inpatient hospitalizations, most recent 2 years ago. Patient denies any psychiatric outpatient follow-up. Patient denies any history of suicide attempts in the past. He does report self harming via cutting his arms. PAST MEDICAL HISTORY: Seizure. ALLERGIES: as per EMR. CHEMICAL DEPENDENCY HISTORY: as per HPI. FAMILY PSYCHIATRIC/SUBSTANCE USE HISTORY: Reports his father overdosed on drugs MENTAL STATUS EXAM: General Appearance: Patient appears to be stated age is alert, pleasant, and cooperative. Patient appears to have poor hygiene and grooming wearing hospital gown with fair eye contact. Behavior: Patient is calmly lying in bed without any agitated behavior. He is tearful intermittently Speech: Patient's speech is fluent and nonpressured. Mood/Affect: Patient reports their mood is "upset", affect is congruent, blunted Suicidality/Homicidality: Patient denies having any suicidal or homicidal ideation intent or plan. Perceptions: Patient denies any visual hallucinations and denies any auditory hallucinations Though content/process: There is no evidence of any delusional thought content and thought process is linear and goal-directed. Memory and concentration: AOX3, grossly intact for the purposes of this session. Can spell "WORLD" backwards Judgment and insight: Poor IMPRESSIONS: Polysubstance use disorder (alcohol, cocaine, opiates, cannabis) History of mood disorder PLAN: -At this time patient DOES NOT meet criteria for inpatient psychiatric admission. -Would recommend the following medication changes/additions: Start naltrexone 50 mg daily for alcohol cravings, continue Abilify 10 mg at bedtime -CIWA protocol with PRN Ativan for alcohol withdrawal. Continue to monitor vital signs. -Can discontinue 1:1 sitter at this time as patient is not currently an imminent threat to themselves -Patient to be discharged to [place] rehab -Viscera Washer spoke with patient about substance abuse and the harmful effects on medical and mental health, patient verbally understood and agreed. -Communicated plan to patient's nurse -Psychiatry will sign off at this time -Please contact with any questions. 09/15/24 15:02
[2024-09-15 15:57] VITALS: BP 129/79; PULSE 87; TEMP 98.7
[2024-09-15] MEDS: NALTREXONE HCL 50 MG TAB PO SCH (15:57)
[2024-09-15] MEDS ORDERED: ARIPiprazole 10 MG TAB PO SCH (21:00)
--- NOTE | 2024-09-15 22:29 | EEG ---
ELECTROENCEPHALOGRAM REPORT CLINICAL HISTORY: This is a 28-year-old gentleman with significant alcohol use, who presents to the emergency department because of seizure-like activity. The video EEG is obtained to evaluate for seizure epileptiform activity. RELEVANT MEDICATIONS: Keppra. DESCRIPTION: The posterior-dominant rhythm consists of [id number] voltage of 12 to 13 hertz activity that is well modulated and sustained. There is no physiological stage 2 sleep architecture. There is no focal slowing. Interictal and ictal is none. ACTIVATION PROCEDURE: Photic stimulation and hyperventilation is not performed. CLINICAL INTERPRETATION: This is a normal routine EEG. There is no focal slowing, epileptiform discharge, or seizure on the EEG. A normal routine EEG does not rule out underlying epilepsy. Clinical correlation is recommended. RENÉE / ERUM: [id number] / JOSE
== END 2024-09-15 16:09 ==
LOC: EC 23:20 → 4SSUR 09-15 01:30
PROVIDERS: ADMIT Student in an Organized Health Care Education/Training Program; ATTEND Student in an Organized Health Care Education/Training Program
DX: F10.239 Alcohol dependence with withdrawal, unspecified (principal); R56.9 Unspecified convulsions; R45.851 Suicidal ideations; F14.10 Cocaine abuse, uncomplicated; F12.10 Cannabis abuse, uncomplicated; F11.10 Opioid abuse, uncomplicated; F20.9 Schizophrenia, unspecified; F31.9 Bipolar disorder, unspecified; F41.9 Anxiety disorder, unspecified; F17.200 Nicotine dependence, unspecified, uncomplicated; Y90.0 Blood alcohol level of less than 20 mg/100 ml; Z79.899 Other long term (current) drug therapy; Z88.0 Allergy status to penicillin
CPT/HCPCS: 96376; 96374; 96375; 99291; 36415; 95819; 93005; 80053; 83735; 85025; 81003; 80306; 80320; 73130; 71045; 70450; G0378; S4990; J2060; J1630; J1953